=== PATIENT | male | born 1980 ===

== ENCOUNTER 2023-12-24 13:28 | Inpatient (IN) | payer OTHER, SELFPAY ==
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
[2023-12-24 13:50] VITALS: BP 107/73; PULSE 108; RESP 18; TEMP 36.8; O2SAT 93; BMI 23.1
[2023-12-24 14:11] VITALS: BP 107/73; PULSE 108; RESP 18; TEMP 36.8; O2SAT 93
[2023-12-24] MEDS: Nicotine 21 MG PATCH.TD24 TRANSDERMA (15:08)
--- NOTE | 2023-12-24 15:17 | PC.NURSE ---
Patient refusing all lab draws/assessments at this time
[2023-12-24 16:43] LABS: MANUAL DIFF FLAG NO
--- NOTE | 2023-12-24 16:43 | PC.NURSE ---
Patient willing to get blood drawn at this time, refusing urine sample. Now resting on bed in 1, appears to be in no apparent distress, respirations even and unlabored
[2023-12-24 16:45] LABS: Basophils Absolute Auto 0.1 X10*3/uL (0.0-0.2); Basophils Percent Auto 0.3 % (0-2); Eosinophils Percent Auto 0.2 % (0-4); Hematocrit 46.5 % (42.0-52.0); Hemoglobin 16.7 g/dl (14.0-18.0); Imm Gran Abs Auto 0.08 X10*3/uL (0.00-0.03); Imm Gran Pct Auto 0.4 % (0.0-0.4); Lymphocytes Absolute Auto 2.7 X10*3/uL (1.2-4.9); Lymphocytes Percent Auto 15.1 % (20-40); Mean Corpuscular HGB Conc 35.9 g/dl (31.0-36.0); Mean Corpuscular Hemoglobin 31.2 pg (27.0-33.0); Mean Corpuscular Volume 86.9 fL (80.0-98.0); Mean Platelet Volume 9.1 fL (9.4-12.4); Monocytes Percent Auto 5.3 % (2-11); Neutrophils Absolute Auto 14.2 x10*3/uL (2.0-8.3); Neutrophils Percent Auto 78.7 % (45-73); Platelet Count 280 X10*3/uL (160-400); Red Blood Count 5.35 X10*6/uL (4.60-5.80); Red Cell Distribution Width 12.4 % (11.0-16.0)
[2023-12-24 17:02] LABS: Alanine Aminotransferase 10 U/L (0-40); Albumin Level 4.4 g/dL (3.5-5.0); Alkaline Phosphatase 121 U/L (39-117); Anion Gap 16 (12-20); Aspartate Amino Transferase 23 U/L (5-37); Blood Urea Nitrogen 19 mg/dL (9-16); Calcium 9.2 mg/dL (8.4-10.2); Carbon Dioxide 22 mmol/L (22-29); Chloride 105 mmol/L (96-108); Creatinine Clr Calc Pharmacy 87.6; Estimated Glomerular Filt Rate > 60; Ethanol < 10 mg/dL; Glucose Random 114 mg/dL (60-115); Potassium 3.7 mmol/L (3.3-5.1); Sodium 139 mmol/L (135-145); Total Protein 7.5 g/dL (6.5-8.0)
[2023-12-24 17:05] VITALS: PULSE 105; RESP 16; TEMP 36.7; O2SAT 95
[2023-12-24 20:45] VITALS: BP 127/91; PULSE 111; RESP 18; TEMP 36.5; O2SAT 95
[2023-12-24 21:09] VITALS: BMI 21.7
--- NOTE | 2023-12-24 21:15 | PC.ADMIT ---
Mendoza was admitted from the [facility] on a CV for unspecified psychosis and PSA. patient denies all psych symptoms, stating I'm just sad wouldn't you be sad. He stated that he only uses THC. he stated that he has never wanted to hurt himself and is here because his family got murdered They killed my mom, then they killed my two sisters and 2 of my dogs . Patient is cooperative but moderately agitated and somewhat pressured during the admission. declined to sign any consents. Can I just sign things in the morning I just want to go back to bed. I need to be discharged as soon as possible because I have to go plan a .
[2023-12-25 08:32] LABS: Estimated Average Glucose 108 mg/dL; Hemoglobin A1c % 5.4 % (<6.0)
[2023-12-25 08:40] VITALS: BP 117/72; PULSE 73; RESP 14; TEMP 36.9; O2SAT 96
[2023-12-25 08:56] LABS: Alanine Aminotransferase 10 U/L (0-40); Albumin Level 4.4 g/dL (3.5-5.0); Alkaline Phosphatase 121 U/L (39-117); Anion Gap 13 (12-20); Aspartate Amino Transferase 21 U/L (5-37); Bilirubin Total 0.9 mg/dL (0.0-1.0); Blood Urea Nitrogen 16 mg/dL (9-16); Calcium 9.5 mg/dL (8.4-10.2); Carbon Dioxide 31 mmol/L (22-29); Chloride 103 mmol/L (96-108); Cholesterol 141 mg/dL (<200); Creatinine Clr Calc Pharmacy 85.9; Estimated Glomerular Filt Rate > 60; Glucose Fasting 91 mg/dL (60-99); HDL Cholesterol 40 mg/dL (>40); LDL Cholesterol Calculated 93 mg/dL (<100); Potassium 4.5 mmol/L (3.3-5.1); Sodium 142 mmol/L (135-145); Total Protein 7.4 g/dL (6.5-8.0); Triglycerides 43 mg/dL (<150)
[2023-12-25 09:04] LABS: Vitamin B12 482 pg/mL (200-900)
[2023-12-25] MEDS: Nicotine 21 MG PATCH.TD24 TRANSDERMA (14:09)
[2023-12-25] MEDS: OLANZapine 5 MG TABLET PO (15:15)
[2023-12-25 19:48] VITALS: BP 100/62; PULSE 95; RESP 16; TEMP 36.8; O2SAT 96
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
[2023-12-26 08:15] VITALS: BP 118/75; PULSE 83; RESP 20; TEMP 36.8; O2SAT 94
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
[2023-12-26] MEDS: Nicotine 21 MG PATCH.TD24 TRANSDERMA (12:40)
[2023-12-26] MEDS: OLANZapine 5 MG TABLET PO (12:40)
[2023-12-27 07:50] VITALS: BP 145/63; PULSE 96; RESP 16; TEMP 36.6; O2SAT 98
[2023-12-27] MEDS: Nicotine 21 MG PATCH.TD24 TRANSDERMA (12:10)
[2023-12-27] MEDS: hydrOXYzine HCL 25 MG TABLET PO ×2 (12:12→20:24)
[2023-12-27] MEDS: OLANZapine 5 MG TABLET PO (12:13)
--- NOTE | 2023-12-27 16:14 | HO.PSYCHPN ---
Subjective Subjective Date of Service: 12/27/23 Reason For Visit: SI Interim History: believes his mother was murdered and his sister in childbirth. asking for discharge SIMEON so he can make arrangements for them. gives MD his mother's phone number and name to try to be in touch with her (Adeola Perez, ). per staff, not attending groups. ROGELIO restriction 2/2 eloping from [facility] when he arrived there last week. refusing meds in general, did get zyprexa 5 mg at 12:40 pm yesterday. Mental Status Exam Mental Status Exam Patient Appearance: Appropriate Patient Orientation: Person, Place, Time and Situation Level of Consciousness: Awake, Restless and Alert Patient Behavior: Guarded, Hyperactive, Suspicious, Restless, Anxious and Distractible Mood Description: Suspicious, Anxious and Apprehensive Affect Description: Suspicious, Anxious and Apprehensive Speech Pattern: Perseverating and Spontaneous Speech Memory Description: Intact Hallucinations: None Delusions: Paranoid Ideation and Present Thought Process: Racing and Distracted Thought Content: positive for Perseveration and positive for Evasive Abnormal Motor Activity Signs and Symptoms: Hyperactivity and Restlessness Judgement: Poor Diagnostics Vital Signs (24Hr): Vital Signs - 24 hr 12/27/23 07:50 Temperature 97.8 F Pulse Rate 96 Respiratory Rate 16 Blood Pressure 145/63 H Pulse Oximetry 98 Oxygen Delivery Method Room Air BMI result Body Mass Index 21.7 Labs 12/24/23 16:35 12/25/23 07:46 Medications Medications Current Medications Acetaminophen (Acetaminophen 325 Mg Tablet) 650 mg PO Q6H PRN PRN Reason: Headache/Pain Mild Scale (1-3) Al Hydroxide/Mg Hydroxide (Magnesium Hydrox/Alum Hydrox 30 Ml Oral.Susp) 30 ml PO Q6H PRN PRN Reason: Heartburn/Nausea Hydroxyzine HCl (Hydroxyzine Hcl 25 Mg Tablet) 25 mg PO Q6H PRN PRN Reason: Anxiety Last Admin: 12/27/23 12:12 Dose: 25 mg Magnesium Hydroxide (Milk Of Magnesia 30 Ml Oral.Susp) 30 ml PO DAILY PRN PRN Reason: Constipation Nicotine (Nicotine 21 Mg Patch.Td24) 21 mg TRANSDERMA DAILY WALLY Last Admin: 12/27/23 12:10 Dose: 21 mg Olanzapine (Olanzapine 5 Mg Tablet) 5 mg PO TID PRN PRN Reason: agitation Last Admin: 12/27/23 12:13 Dose: 5 mg Trazodone HCl (Trazodone Hcl 50 Mg Tablet) 50 mg PO BEDTIME PRN PRN Reason: Insomnia Allergies Allergies Allergy/AdvReac Type Severity Reaction Status Date / Time No Known Allergies Allergy Verified 12/24/23 13:53 Assessment & Plan Assessment & Plan (1) Psychosis: Status: Acute Code(s): F29 - Unspecified psychosis not due to a substance or known physiological condition Plan 43 yo male admitted to [facility] inpatient unit with psychosis. Patient originally presented to [facility] ED because he called the police saying that a neighbor killed his mother and his sister was in danger. He was seen by crisis there and secured a bed at [facility]. Upon arrival to [facility] patient eloped from the ambulance and after being located by police he was taken to [facility] ED as [email or web address] declined re-accepting the patient to their unit. On exam he presents with paranoia, delusions, is anxious, evasive and pressured. Differential dx include acute exacerbation of underlying psychotic illness, bipolar disorder, substance induced psychosis. Patient refused giving a Utox. Plan: - Admit to inpatient psychiatry - CV - Collateral information from family and providers. - Milieu treatment and group therapy. - Medications: Zyprexa 5 mg TID PRN. Patient refusing scheduled medications. - Social work evaluation. - Disposition planning. 12/25: Encourage milieu engagement. Monitor response to Zyprexa. Otherwise continue current management and treatment plan. 12/26: more calm today, believes his mother was murdered. CAROLINE Junior called and spoke with mother, who has not in fact been murdered, evidently, today. had one dose of zyprexa yesterday, otherwise declining meds. Reason for continued inpatient stay Substantial Risk for: inability to function Time Spent With Patient Time: Total time managing care of this patient today __35__ minutes.
[2023-12-27 20:00] VITALS: BP 116/61; PULSE 95; RESP 16; TEMP 36.8; O2SAT 97
[2023-12-27] MEDS: OLANZapine 10 MG TABLET PO (20:23)
--- NOTE | 2023-12-27 20:25 | PC.NURSE ---
Patient given Atarax PO prn for elevated anxiety.
[2023-12-28] MEDS: Nicotine 21 MG PATCH.TD24 TRANSDERMA (12:06)
--- NOTE | 2023-12-28 14:43 | P.DS_ITS ---
DS: Providers Provider Date of Service: 12/28/23 Date of admission: 12/24/23 19:51 Primary care physician: Unknown Physician DS: Diagnosis Discharge Diagnosis (1) Psychosis: Status: Acute DS: Medications Discharge Medications Home Medications: Home Medications ?Medication ?Instructions ?Recorded ?Confirmed No Known Home Meds 12/24/23 12/24/23 Mental Status Exam Mental Status Exam Patient Appearance: Appropriate Patient Orientation: Person, Place, Time and Situation Level of Consciousness: Awake, Restless and Alert Patient Behavior: Guarded, Suspicious, Restless, Anxious and Distractible Mood Description: Suspicious, Anxious and Apprehensive Affect Description: Suspicious, Anxious and Apprehensive Speech Pattern: Spontaneous Speech Memory Description: Intact Hallucinations: None Delusions: Paranoid Ideation and Present Thought Process: Racing and Distracted Thought Content: positive for Perseveration and positive for Evasive Abnormal Motor Activity Signs and Symptoms: Hyperactivity and Restlessness Judgement: Poor Data Data Completed and Pending Completed studies during hospitalization [Text1]: 12/24/23 12/25/23 16:35 07:46 WBC 18.0 H RBC 5.35 Hgb 16.7 Hct 46.5 MCV 86.9 MCH 31.2 MCHC 35.9 RDW 12.4 Plt Count 280 MPV 9.1 L Immature Gran % (Auto) 0.4 Neut % (Auto) 78.7 H Lymph % (Auto) 15.1 L [place] % (Auto) 5.3 Eos % (Auto) 0.2 Baso % (Auto) 0.3 Lymph # (Auto) 2.7 [place] # (Auto) 1.0 Eos # (Auto) 0.0 Baso # (Auto) 0.1 Abs Immat Gran (auto) 0.08 H Absolute Neuts (auto) 14.2 H Absolute Nucleated RBC 0.000 Nucleated RBC % (auto) 0.0 Hold Purple Top SEE NOTE Sodium 139 142 Potassium 3.7 4.5 D Chloride 105 103 Carbon Dioxide 22 31 H Anion Gap 16 13 BUN 19 H 16 Creatinine 1.21 1.16 Estim Creat Clear Calc 87.6 85.9 Estimated GFR > 60 > 60 Random Glucose 114 Fasting Glucose 91 Estimat Average Glucose 108 Hemoglobin A1c % 5.4 Calcium 9.2 9.5 Total Bilirubin 1.0 0.9 AST 23 21 ALT 10 10 Alkaline Phosphatase 121 H 121 H Total Protein 7.5 7.4 Albumin 4.4 4.4 Triglycerides 43 Cholesterol 141 LDL Cholesterol, Calc 93 HDL Cholesterol 40 L Vitamin B12 482 TSH 0.30 L Ethyl Alcohol < 10 DS: Summary Hospital Course Hospital Course: per 12/24 admission note: 43 yo male originally from [place], [place]. He was admitted to [facility] inpatient unit with psychosis. Patient originally presented to [facility] ED because he called the police saying that a neighbor killed his mother and his sister was in danger. He was seen by crisis there and secured a bed at [facility]. Upon arrival to [facility] patient eloped from the ambulance and after being located by police he was taken to [facility] ED as [facility] declined re-accepting the patient to their unit. Patient was seen by the CARE Team in the ED and had flight of ideas, appeared manic and psychotic. He reported his neighbor killed his mother and sister then said the police killed his mother. He refused to give a UTOX. Patient seen on the unit and is focused on discharge. I have to arrange for my mother's . He says that the police killed his mother, sister and his dogs and that they keep doing this to me and when I call them they send me to the hospital. I can't trust the police. They keep getting me in trouble. They killed my es and my 2 dogs. He appears anxious and paranoid. He says he wants to leave. Denies SI. Past Psychiatric History: Patient vaguely mentions an admission to [facility]. He gives very limited details. Denies medication treatment. Medical Evaluation Reviewed: Yes [facility] Family History: Unknown at this time Social History: 43 years old. . Lives alone. 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 Substance History: Currently using cannabis. 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 Trauma History: unknown 12/25: On approach he immediately says I need to be out of here. I have to arrange for my mother's . Insight is impaired. Has utilized Zyprexa PRN on 2 occasions. Feels it helps his anxiety. Per nursing he is irritable and dismissive. No aggression. Withdrawn, guarded and paranoid. 12/26: believes his mother was murdered and his sister in childbirth. asking for discharge [facility] so he can make arrangements for them. gives MD his mother's phone number and name to try to be in touch with her (Adeola Johnathanranjeetitalia, ). per staff, not attending groups. ROGELIO restriction /2 eloping from [facility] when he arrived there last week. refusing meds in general, did get zyprexa 5 mg at 12:40 pm yesterday. 12/27: seen with CAROLINE Junior. calm and cooperative. visibly emotionally affected with CAROLINE Junior's revelation to pt that his mother is not . no insight, unable to appreciate mental illness or longstanding pattern of similar belief. per collateral from CAROLINE Junior, pt's friend brian is his de facto highway design engineer. this information is from both mother and brian. brian provides housing for pt and will come pickling grader pt and return him to [facility] tomorrow. per mother, pt's current precentation is his long-standing baseline. pt refusing medications. Precis: 12/24: Admit to inpatient psychiatry. Collateral information from family and providers. Milieu treatment and group therapy. Medications: Zyprexa 5 mg TID PRN. Patient refusing scheduled medications. Social work evaluation. Disposition planning. 12/25: Encourage milieu engagement. Monitor response to Zyprexa. Otherwise continue current management and treatment plan. 12/26: more calm today, believes his mother was murdered. CAROLINE Junior called and spoke with mother, who has not in fact been murdered, evidently, today. had one dose of zyprexa yesterday, otherwise declining meds. 12/27: had another 5 mg of zyprexa PRN in the past 24H. calm, cooperative, relieved to hear his mother is not . friend and support brian will be picking pt up tomorrow, upon expiry of his 3-day notice. 12/28: no notable events overnight. discharged back to outpt care as per his request. Time Spent with Patient Time attestation: Total time managing care of this patient today __35__ minutes. Discharge Plan Discharge Anticipated Discharge Date/Time: 12/29/23 10:00 Patient Disposition: Home, Self-Care Discharge Diagnosis: Psychotic Disorder NOS Referrals: Roberta (Therapy) [Other] - 1 Week (*Please reach out to your therapist if you would like to continue to engage in services. ) Physician,Unknown J [Primary Care Provider] - 1 Week (Pt to follow up with [facility] walk-in clinic for PCP appointment. ) Discharge Medications: New olanzapine 10 mg Tablet 10 mg PO BEDTIME 30 Days Qty: 30 0RF Discharge Orders: Discharge Order (Routine); Ordered 12/29/23 Ordered By: Toro Bustillos Diet: Advance to usual diet Activity on Discharge: As tolerated Stand Alone Forms: Patient Portal Discharge page, Community Support Print Language: Unknown Care Plan Goals: remain safe and stable in the outpatient treatment setting Health Concerns: none Plan of Treatment: engage with outpatient mental health services as directed Assessment: not at imminent risk of harm to self or others, Discharge Date/Time: 12/29/23 11:27
[2023-12-28 16:38] VITALS: BP 113/77; PULSE 104; RESP 16; TEMP 37; O2SAT 97
[2023-12-28 20:00] VITALS: BP 145/88; PULSE 131; RESP 18; TEMP 36.8; O2SAT 98
[2023-12-28] MEDS: hydrOXYzine HCL 25 MG TABLET PO (20:12)
[2023-12-28] MEDS: OLANZapine 10 MG TABLET PO (20:12)
--- NOTE | 2023-12-28 21:34 | PC.NURSE ---
Patient given Atarax PO prn for mild anxiety
[2023-12-29 07:40] VITALS: BP 117/72; PULSE 70; RESP 18; O2SAT 94
== END 2023-12-29 11:27 | disposition home or self-care (01) | DRG 751 ==
LOC: HO.ED 15:53 → HO.PADLT16 20:14
PROVIDERS: Physician Assistant Medical; Admitting Provider Social Worker; Emergency Provider Student in an Organized Health Care Education/Training Program; Visit Provider Psychiatry & Neurology Psychiatry
DX: F29 Unspecified psychosis not due to a substance or known physiological condition (principal); R45.851 Suicidal ideations; F17.210 Nicotine dependence, cigarettes, uncomplicated; Z71.6 Tobacco abuse counseling
CPT/HCPCS: 36415; 80053; 80061; 80307; 82607; 83036; 84443; 85025; 99285; S9485

== ENCOUNTER → 2023-12-24 19:51 | Outpatient (BNV) | payer OTHER, SELFPAY | PROVIDERS: Admitting Provider Social Worker; Emergency Provider Student in an Organized Health Care Education/Training Program; Visit Provider Psychiatry & Neurology Psychiatry | DX: F29 Unspecified psychosis not due to a substance or known physiological condition (principal) | CPT/HCPCS: 90792; 99231; 99232; 99239 ==